=== PATIENT | male | born 1950 | race Caucasian/White ===

== ENCOUNTER 2021-02-03 14:28 | Inpatient (IN) | payer MEDICARE ==
--- NOTE | 2021-02-03 17:28 | XR ---
EXAMINATION TYPE: XR chest 2V DATE OF EXAM: 02/03/2021 COMPARISON: NONE HISTORY: Short of breath. Weakness TECHNIQUE: 2 view FINDINGS: Heart is normal. Lungs are clear of infiltrate. There is no heart failure. There are no hil ar masses. Bony thorax is intact. IMPRESSION: No active cardiopulmonary disease. Normal heart.
[2021-02-03 19:17] LABS: Basophils % (A) 0 %; Eosinophils % (A) 0 %; HCT 46.6 % (39.0-53.0); HGB 16.1 gm/dL (13.0-17.5); Lymphocytes # (A) 0.4 k/uL (1.0-4.8); Lymphocytes % (A) 6 %; MCH 34.1 pg (25.0-35.0); MCHC 34.6 g/dL (31.0-37.0); MCV 98.6 fL (80.0-100.0); Monocytes # (A) 0.7 k/uL (0-1.0); Monocytes % (A) 10 %; Neutrophils # (A) 5.9 k/uL (1.3-7.7); Neutrophils % (A) 81 %; Platelet Count 196 k/uL (150-450); RBC 4.73 m/uL (4.30-5.90); RDW 11.6 % (11.5-15.5); WBC 7.3 k/uL (3.8-10.6)
[2021-02-03 19:32] LABS: INR 0.9 (<1.2); Prothrombin Time 9.7 sec (9.0-12.0)
[2021-02-03 19:40] LABS: ALT 24 U/L (4-49); AST 30 U/L (17-59); African American GFR (CKD) >90 (>60 ml/min/1.73 sqM); Albumin 4.7 g/dL (3.5-5.0); Alkaline Phosphatase 100 U/L (38-126); Anion Gap 12 mmol/L; Blood Urea Nitrogen 7 mg/dL (9-20); Calcium 9.5 mg/dL (8.4-10.2); Carbon Dioxide 24 mmol/L (22-30); Chloride 90 mmol/L (98-107); Glucose 112 mg/dL (74-99); Non-African American GFR(CKD) >90 (>60 ml/min/1.73 sqM); Potassium 4.1 mmol/L (3.5-5.1); Sodium 126 mmol/L (137-145); Total Bilirubin 0.7 mg/dL (0.2-1.3); Total Protein 8.1 g/dL (6.3-8.2)
[2021-02-03] MEDS ORDERED: SODIUM CHLORIDE 0.9% 1,000 ML IV STA (20:10)
[2021-02-03] MEDS ORDERED: DOCUSATE 100 MG CAP PO PRN (20:13)
[2021-02-03] MEDS ORDERED: NALOXONE 0.4 MG/ML 1 ML VIAL IV PRN (20:13)
[2021-02-03] MEDS ORDERED: ONDANSETRON 4 MG/2 ML VIAL IVP PRN (20:13)
[2021-02-03] MEDS ORDERED: traMADol 50 MG TAB PO PRN (20:13)
--- NOTE | 2021-02-03 20:13 | ED ---
General Adult HPI - General Chief complaint: Shortness of Breath Stated complaint: Shortness of Breath Time Seen by Provider: 02/03/21 18:04 Source: patient Mode of arrival: ambulatory Limitations: no limitations - History of Present Illness Initial comments: Patient presents with generalized weakness. He has some shortness of breath. He has no nausea or vomiting. He had no recent sick contacts. He hasn't taken any new medications. He has taken no medication to help with the symptoms. He has no swelling in the arms or legs. He has no palpitations. He does have worsening shortness of breath while lying down or with exertion. He has general ized lethargy. He has malaise. He has no focal deficits however. - Related Data Allergies Allergy/AdvReac Type Severity Reaction Status Date / Time No Known Allergies Allergy Verified 02/03/21 16:24 Review of Systems ROS Statement: Those systems with pertinent positive or pertinent negative responses have been documented in the HPI. ROS Other: All systems not noted in ROS Statement are negative. Past Medical History Past Medical History: No Reported History History of Any Multi-Drug Resistant Organisms: None Reported Past Surgical History: No Surgical Hx Reported Past Psychological History: No Psychological Hx Reported Smoking Status: Never smoker Past Alcohol Use History: None Reported, Daily Past Drug Use History: None Reported, Marijuana General Exam Limitations: no limitations General appearance: alert, in no apparent distress Head exam: Present: atraumatic, normocephalic, normal inspection Eye exam: Present: normal appearance, PERRL, EOMI. Absent: scleral icterus, conjunctival injection, periorbital swelling ENT exam: Present: normal exam, mucous membranes moist Neck exam: Present: normal inspection. Absent: tenderness, meningismus, lymphadenopathy Respiratory exam: Present: normal lung sounds bilaterally. Absent: respiratory distress, wheezes, rales, rhonchi, stridor Cardiovascular Exam: Present: regular rate, normal rhythm, normal heart sounds. Absent: systolic murmur, diastolic murmur, rubs, gallop, clicks GI/Abdominal exam: Present: soft, normal bowel sounds. Absent: distended, tenderness, guarding, rebound, rigid Extremities exam: Present: normal inspection, full ROM, normal capillary refill. Absent: tenderness, pedal edema, joint swelling, calf tenderness Back exam: Present: normal inspection Neurological exam: Present: alert, oriented X3, CN II-XII intact Psychiatric exam: Present: normal affect, normal mood Skin exam: Present: warm, dry, intact, normal color. Absent: rash Course Vital Signs 02/03/21 02/03/21 16:25 18:28 Temperature 98.9 F Pulse Rate 98 96 Respiratory 20 18 Rate Blood Pressure 178/102 189/107 O2 Sat by Pulse 96 96 Oximetry Medical Decision Making - Medical Decision Making Patient presents with malaise and weakness and shortness of breath. He has a very low sodium. I ordered him sodium chloride. He will be admitted to the hospital. - Lab Data Result diagrams: 02/03/21 19:00 02/03/21 19:00 Lab Results 02/03/21 02/03/21 02/03/21 Range/Units 16:30 19:00 19:00 WBC 7.3 (3.8-10.6) k/uL RBC 4.73 (4.30-5.90) m/uL Hgb 16.1 (13.0-17.5) gm/dL Hct 46.6 (39.0-53.0) % MCV 98.6 (80.0-100.0) fL MCH 34.1 (25.0-35.0) pg MCHC 34.6 (31.0-37.0) g/dL RDW 11.6 (11.5-15.5) % Plt Count 196 (150-450) k/uL MPV 8.0 Neutrophils % 81 % Lymphocytes % 6 % Monocytes % 10 % Eosinophils % 0 % Basophils % 0 % Neutrophils # 5.9 (1.3-7.7) k/uL Lymphocytes # 0.4 L (1.0-4.8) k/uL Monocytes # 0.7 (0-1.0) k/uL Eosinophils # 0.0 (0-0.7) k/uL Basophils # 0.0 (0-0.2) k/uL PT 9.7 (9.0-12.0) sec INR 0.9 (<1.2) APTT 25.0 (22.0-30.0) sec D-Dimer 0.21 (<0.60) mg/L FEU Sodium (137-145) mmol/L Potassium (3.5-5.1) mmol/L Chloride (98-107) mmol/L Carbon Dioxide (22-30) mmol/L Anion Gap mmol/L BUN (9-20) mg/dL Creatinine (0.66-1.25) mg/dL Est GFR (CKD-EPI)AfAm (>60 ml/min/1.73 sqM) Est GFR (CKD-EPI)NonAf (>60 ml/min/1.73 sqM) Glucose (74-99) mg/dL Plasma Lactic Acid Mikey (0.7-2.0) mmol/L Calcium (8.4-10.2) mg/dL Magnesium (1.6-2.3) mg/dL Total Bilirubin (0.2-1.3) mg/dL AST (17-59) U/L ALT (4-49) U/L Alkaline Phosphatase (38-126) U/L Troponin I (0.000-0.034) ng/mL NT-Pro-B Natriuret Pep pg/mL Total Protein (6.3-8.2) g/dL Albumin (3.5-5.0) g/dL Coronavirus (PCR) Not Detected (Not Detectd) 02/03/21 02/03/21 02/03/21 Range/Units 19:00 19:00 19:00 WBC (3.8-10.6) k/uL RBC (4.30-5.90) m/uL Hgb (13.0-17.5) gm/dL Hct (39.0-53.0) % MCV (80.0-100.0) fL MCH (25.0-35.0) pg MCHC (31.0-37.0) g/dL RDW (11.5-15.5) % Plt Count (150-450) k/uL MPV Neutrophils % % Lymphocytes % % Monocytes % % Eosinophils % % Basophils % % Neutrophils # (1.3-7.7) k/uL Lymphocytes # (1.0-4.8) k/uL Monocytes # (0-1.0) k/uL Eosinophils # (0-0.7) k/uL Basophils # (0-0.2) k/uL PT (9.0-12.0) sec INR (<1.2) APTT (22.0-30.0) sec D-Dimer (<0.60) mg/L FEU Sodium 126 L (137-145) mmol/L Potassium 4.1 (3.5-5.1) mmol/L Chloride 90 L (98-107) mmol/L Carbon Dioxide 24 (22-30) mmol/L Anion Gap 12 mmol/L BUN 7 L (9-20) mg/dL Creatinine 0.58 L (0.66-1.25) mg/dL Est GFR (CKD-EPI)AfAm >90 (>60 ml/min/1.73 sqM) Est GFR (CKD-EPI)NonAf >90 (>60 ml/min/1.73 sqM) Glucose 112 H (74-99) mg/dL Plasma Lactic Acid Mikey 1.2 (0.7-2.0) mmol/L Calcium 9.5 (8.4-10.2) mg/dL Magnesium 2.0 (1.6-2.3) mg/dL Total Bilirubin 0.7 (0.2-1.3) mg/dL AST 30 (17-59) U/L ALT 24 (4-49) U/L Alkaline Phosphatase 100 (38-126) U/L Troponin I <0.012 (0.000-0.034) ng/mL NT-Pro-B Natriuret Pep pg/mL Total Protein 8.1 (6.3-8.2) g/dL Albumin 4.7 (3.5-5.0) g/dL Coronavirus (PCR) (Not Detectd) 02/03/21 Range/Units 19:00 WBC (3.8-10.6) k/uL RBC (4.30-5.90) m/uL Hgb (13.0-17.5) gm/dL Hct (39.0-53.0) % MCV (80.0-100.0) fL MCH (25.0-35.0) pg MCHC (31.0-37.0) g/dL RDW (11.5-15.5) % Plt Count (150-450) k/uL MPV Neutrophils % % Lymphocytes % % Monocytes % % Eosinophils % % Basophils % % Neutrophils # (1.3-7.7) k/uL Lymphocytes # (1.0-4.8) k/uL Monocytes # (0-1.0) k/uL Eosinophils # (0-0.7) k/uL Basophils # (0-0.2) k/uL PT (9.0-12.0) sec INR (<1.2) APTT (22.0-30.0) sec D-Dimer (<0.60) mg/L FEU Sodium (137-145) mmol/L Potassium (3.5-5.1) mmol/L Chloride (98-107) mmol/L Carbon Dioxide (22-30) mmol/L Anion Gap mmol/L BUN (9-20) mg/dL Creatinine (0.66-1.25) mg/dL Est GFR (CKD-EPI)AfAm (>60 ml/min/1.73 sqM) Est GFR (CKD-EPI)NonAf (>60 ml/min/1.73 sqM) Glucose (74-99) mg/dL Plasma Lactic Acid Mikey (0.7-2.0) mmol/L Calcium (8.4-10.2) mg/dL Magnesium (1.6-2.3) mg/dL Total Bilirubin (0.2-1.3) mg/dL AST (17-59) U/L ALT (4-49) U/L Alkaline Phosphatase (38-126) U/L Troponin I (0.000-0.034) ng/mL NT-Pro-B Natriuret Pep 98 pg/mL Total Protein (6.3-8.2) g/dL Albumin (3.5-5.0) g/dL Coronavirus (PCR) (Not Detectd) Disposition Clinical Impression: Hyponatremia Disposition: ADMITTED IP TO THIS HOSP Condition: Fair Referrals: Jonelle Osei MD [Primary Care Provider] - 1-2 days
--- NOTE | 2021-02-04 07:56 | ECHOF ---
Referral Reason:dyspnea MEASUREMENTS -------- HEIGHT: 180.3 cm WEIGHT: 68.9 kg BP: IVSd: 0.9 cm (0.6 - 1.1) LVIDd: 3.4 cm (3.9 - 5.3) LVPWd: 1.3 cm (0.6 - 1.1) IVSs: 1.6 cm LVIDs: 1.7 cm LVPWs: 1.6 cm Ao Diam: 3.3 cm (2.0 - 3.7) AV Cusp: 1.6 cm (1.5 - 2.6) LA Diam: 2.2 cm (2.7 - 3.8) MV EXCURSION: 14.924 mm (> 18.000) MV EF SLOPE: 68 mm/s (70 - 150) EPSS: 0.3 cm MV E Richard: 0.66 m/s MV DecT: 197 ms MV A Richard: 0.97 m/s MV E/A Ratio: 0.68 RAP: 5.00 mmHg RVSP: 25.57 mmHg FINDINGS -------- This was a technically difficult study with suboptimal views. Study taken from [facility] The left ventricular size is normal. There is mild concentric left ventricular hypertrophy. Overa ll left ventricular systolic function is normal with, an EF between 55 - 60 %. The RV was not well visualized. The left atrial size is normal. The right atrial size is normal. The aortic valve was not well visualized. The mitral valve is normal. There is trace mitral regurgitation. The tricuspid valve appears structurally normal. Trace tricuspid regurgitation present. Right felix tricular systolic pressure is normal at < 35 mmHg. The pulmonic valve was not well visualized. The aortic root size is normal. Normal inferior vena cava with normal inspiratory collapse consistent with estimated right atrial pre ssure of 5 mmHg. There is no pericardial effusion. CONCLUSIONS -------- 1. Study taken from [facility] 2. The left ventricular size is normal. 3. There is mild concentric left ventricular hypertrophy. 4. Overall left ventricular systolic function is normal with, an EF between 55 - 60 %. 5. There is trace mitral regurgitation. 6. Trace tricuspid regurgitation present. 7. There is no pericardial effusion. [employer]: Breonna Luciano [facility]
[2021-02-04] MEDS ORDERED: LOSARTAN 50 MG TAB PO SCH (09:00)
[2021-02-04 11:16] LABS: African American GFR (CKD) >90 (>60 ml/min/1.73 sqM); Anion Gap 5 mmol/L; Blood Urea Nitrogen 7 mg/dL (9-20); Calcium 8.6 mg/dL (8.4-10.2); Carbon Dioxide 27 mmol/L (22-30); Chloride 94 mmol/L (98-107); Glucose 112 mg/dL (74-99); Non-African American GFR(CKD) >90 (>60 ml/min/1.73 sqM); Potassium 3.9 mmol/L (3.5-5.1); Sodium 126 mmol/L (137-145)
[2021-02-04] MEDS: AZITHROMYCIN 500 MG TAB PO SCH (11:23)
--- NOTE | 2021-02-04 11:42 | CT ---
EXAMINATION TYPE: CT angio chest DATE OF EXAM: 02/04/2021 11:18 AM COMPARISON: None HISTORY: RITA CT DLP: 224.5 mGycm Automated exposure control for dose reduction was used. CONTRAST: CTA scan of the thorax is performed with IV Contrast, patient injected with 100 mL of Isovue 370, pul monary embolism protocol. . FINDINGS: LUNGS: There is emphysematous changes. There is peribronchial thickening involving the lung bases cor relate for bronchitis. No consolidative pneumonia or pleural effusion. No pneumothorax. Apical and po sterior pleural-based thickening noted. MEDIASTINUM: There is a soft tissue fullness involving the mediastinum and hilum measuring a short ax is of 1.1 cm compatible with adenopathy. Coronary artery calcification is seen is a trace pericardial fluid. Aorta appears to be of normal caliber with atherosclerotic change. Heart size normal. OTHER: Hypertrophic and degenerative changes of the spine. Hypodensity involving the upper pole the left kidney is too small to characterize but likely related to a cyst and there is mild thickening of the adrenal glands. IMPRESSION: COPD WITH NONSPECIFIC MEDIASTINAL AND HILAR LYMPHADENOPATHY. CORRELATE CLINICALLY. PERIBRONCHIAL WALL THICKENING IS NOTED DIFFUSELY CAN BE ASSOCIATED WITH INFLAMMATORY CONDITIONS INCLU DING BRONCHITIS CORRELATE CLINICALLY. CORONARY ARTERY CALCIFICATION. SMALL PERICARDIAL EFFUSION.
[2021-02-04] MEDS ORDERED: LOSARTAN 50 MG TAB PO STA (15:02)
--- NOTE | 2021-02-04 15:04 | P.HPIM ---
History of Present Illness H&P Date: 02/04/21 HISTORY OF PRESENT ILLNESS This is a 70-year-old male patient of Dr. Osei with PMH of hypertension, generalized osteoarthritis, remote history of tobacco use, COPD. Patient complains of shortness of breath and cough with opaque sputum production. He also complains of occasional wheezing. Symptoms seem to have started her gotten worse after having sexual intercourse with his and he experienced pain while she was on top of him. He has been diagnosed with COPD but does not follow with a pulmonary doctor and is not on any treatment. He complains of increasing shortness of breath with activity but continued to worsen on Wednesday and Wednesday. He denies any Covid exposure. She was afebrile, heart rate 96, initial blood pressure 178/102, pulse ox 96% on room air. CBC was unremarkable. Sodium 126, potassium 4.1, chloride 90, CO2 24, BUN 7 and creatinine 0.58. Blood sugar 112. Troponin negative on 2 draws. Contreras virus not detected on 2 specimens. ProBNP 98. Chest x-ray reveals no acute cardio pulmonary disease. Echocardiogram reveals EF of 55-60%, mild concentric left hypertrophy, trace mitral regurgitation, trace tricuspid regurgitation. CTA of the chest revealed COPD with nonspecific mediastinal and hilar lymphadenopathy. Peribronchial wall thickening is noted diffusely can be associated with inflammatory conditions including bronchitis. Coronary artery calcification small pericardial effusion. Patient is seen today on the Medr floor, consult added for pulmonary medicine, consult with nephrology for hyponatremia. REVIEW OF SYSTEMS Constitutional: No fever, no chills, no night sweats. No weight change. No weakness, fatigue or lethargy. No daytime sleepiness. EENT: No headache. No blurred vision or double vision, no loss of vision. No loss of Hearing, no ringing in the ears, no dizziness. No nasal drainage or congestion. No epistaxis. No sore throat. Lungs: Reports shortness of breath, reports cough, reports sputum production. No wheezing. Cardiovascular: No chest pain, no lower extremity edema. No palpitations. No paroxysmal nocturnal dyspnea. No orthopnea. No lightheadedness or dizziness. No syncopal episodes. Abdominal: No abdominal pain. No nausea, vomiting. No diarrhea. No constipation. No bloody or tarry stools. No loss of appetite. Genitourinary: No dysuria, increased frequency, urgency. No urinary retention. Musculoskeletal: No myalgias. No muscle weakness, no gait dysfunction, no frequent falls. No back pain. No neck pain. Integumentary: No wounds, no lesions. No rash or pruritus. No unusual bruising. No change in hair or nails. Neurologic: No aphasia. No facial droop. No change in mentation. No head injury. No headache. No paralysis. No paresthesia. Psychiatric: No depression. No anxiety. No mood swings. Endocrine: No abnormal blood sugars. No weight change. SOCIAL HISTORY Patient was a smoker for greater than 20 years and quit in the . He drinks 2-3 beer or liquor per day for greater than 30 years. He denies having withdrawal symptoms when he does not have alcohol. He has used marijuana in the past but not at this time, denies illicit drug use. 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 He lives at home with his . FAMILY HISTORY Mother at age 79 from brain cancer. Father at age 80 from heart failure. Patient has a total of 7 siblings and 2 sisters have one from throat cancer and one from brain cancer. Patient has 2 children with no major medical problems. PHYSICAL EXAMINATION Gen: This is a 70-year-old male. He is resting in the bed with no a cute respiratory distress. HEENT: Head is atraumatic, normocephalic. Pupils equal, round. Sclerae is anicteric. NECK: Supple. No JVD. No lymphadenopathy. No thyromegaly. LUNGS: Clear to auscultation. No wheezes or rhonchi. No intercostal retractions. HEART: Regular rate and rhythm. No murmur. ABDOMEN: Soft. Bowel sounds are present. No masses. No tenderness. EXTREMITIES: No pedal edema. No calf tenderness. NEUROLOGICAL: Patient is awake, alert and oriented x3. Cranial nerves 2 through 12 are grossly intact. ASSESSMENT AND PLAN 1. Difficulty in breathing of unclear etiology. Consult with pulmonary medicine, patient started on ceftriaxone and azithromycin for atypical pneumonia. 2. Uncontrolled hypertension. Losartan increased to 100 mg daily. 3. Insomnia. Continue Restoril 50 mg at bedtime. 4. Remote history of tobacco use and dependence. 5. GI prophylaxis. Protonix. 6. DVT prophylaxis. Lovenox. 7. COVID-19 testing negative. Patient has been hospitalized during a pandemic. Patient will be admitted to the hospital for a minimum of 2 night stay. DISCHARGE PLAN Return home. Impression and plan of care have been directed as dictated by the signing physician. Aylin Lee nurse practitioner acting as scribe for signing physician. Past Medical History Past Medical History: Hypertension, Osteoarthritis (OA) History of Any Multi-Drug Resistant Organisms: None Reported Past Surgical History: No Surgical Hx Reported, Tonsillectomy Additional Past Surgical History / Comment(s): cyst taken of lt wrist. orif rt ring finger,cataracts removed, carple tunnel surgery lt hand, Past Psychological History: No Psychological Hx Reported Smoking Status: Former smoker Past Alcohol Use History: None Reported, Daily Past Drug Use History: None Reported, Marijuana Medications and Allergies Home Medications Medication Instructions Recorded Confirmed Type Immune Booster Liquid Drops 3 drops PO DAILY PRN 02/03/21 02/03/21 History Losartan [Cozaar] 50 mg PO DAILY 02/03/21 02/03/21 History Unknown Otc Sinus & Cough 1 dose PO DAILY PRN 02/03/21 02/03/21 History Medication diphenhydrAMINE [Benadryl] 25 mg PO DAILY PRN 02/03/21 02/03/21 History Viagra (Unknown Dose) 1 tab PO DAILY PRN 02/04/21 02/04/21 History Allergies Allergy/AdvReac Type Severity Reaction Status Date / Time No Known Allergies Allergy Verified 02/03/21 21:24 Physical Exam Vitals: Vital Signs Temp Pulse Pulse Resp BP BP Pulse Ox 02/04/21 04:30 99.1 F 93 20 153/81 94 L 02/03/21 23:30 98.3 F 101 H 22 169/94 93 L 02/03/21 22:25 97.6 F 97 18 174/108 94 L 02/03/21 21:00 95 18 167/102 94 L 02/03/21 18:28 96 18 189/107 96 02/03/21 16:25 98.9 F 98 20 178/102 96 Intake and Output 02/03/21 02/04/21 02/04/21 22:59 06:59 14:59 Intake Total 100 Balance 100 Intake: Oral 100 Other: # Voids 1 Weight 68.946 kg Results CBC & Chem 7: 02/03/21 19:00 02/04/21 09:39 Labs: Abnormal Lab Results - Last 24 Hours (Table) 02/03/21 02/03/21 Range/Units 19:00 19:00 Lymphocytes # 0.4 L (1.0-4.8) k/uL Sodium 126 L (137-145) mmol/L Chloride 90 L (98-107) mmol/L BUN 7 L (9-20) mg/dL Creatinine 0.58 L (0.66-1.25) mg/dL Glucose 112 H (74-99) mg/dL Thrombosis Risk Factor Assmnt - Choose All That Apply Any of the Below Risk Factors Present?: No Each Risk Factor Represents 2 Points: Age 61-74 years Thrombosis Risk Factor Assessment Total Risk Factor Score: 2 Thrombosis Risk Factor Assessment Level: Low Risk
--- NOTE | 2021-02-04 20:36 | CONS ---
CONSULTATION REASON FOR CONSULT: Hyponatremia. HISTORY OF PRESENT ILLNESS: The patient is a 70-year-old male who was admitted to the hospital yesterday with complaints of shortness of breath. He denied any nausea or vomiting. He was also complaining of increased weakness. Patient denies any previous history of hyponatremia. His sodium was noted to be 126 and it is again 126 today. We do not have any prior labs available for comparison. Creatinine is 0.5. Blood pressure was not low. It is staying 160-150 mmHg systolic. At home, patient was not maintained on any diuretics. PAST MEDICAL HISTORY: Hypertension. PAST SURGICAL HISTORY: None. SOCIAL HISTORY: Negative for smoking, drug abuse or alcohol abuse. MEDICATIONS: Medications prior to admission included Cozaar, Viagra p.r.n. REVIEW OF SYSTEMS: As per HPI. Other systems negative. EXAMINATION: Blood pressure is 164/86, heart rate 94 per minute. Patient is afebrile. Examination of the heart S1, S2. Examination of the lungs, bilateral breath sounds are heard. Abdomen is soft, nontender. Examination of lower extremities shows no evidence of edema. 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 LAB: Show sodium 126, potassium 3.9, BUN 7, serum creatinine 0.58, hemoglobin 16.1. ASSESSMENT: 1. Hyponatremia. Patient appears euvolemic. He is status post IV fluids at 130 mL an hour. This is now discontinued. Serum sodium has stayed the same and has not improved and blood pressure is not low. Therefore this is mostly euvolemic hyponatremia. Need to rule out SIADH versus poor solute intake. Check urine osmolality and repeat sodium later on this evening. No evidence of CHF noted on chest x-ray and clinically. 2. Increased weakness, possibly related to hyponatremia, although serum sodium is not critically low. 3. Hypertension. Continue with the Cozaar. PLAN: Check urine osmolality. Check TSH. Repeat sodium this afternoon and continue to hold off on the saline for now. Thank you for this consultation. We will continue to follow the patient with you during his hospitalization. MMODL / IJN: [id number] /
[2021-02-04] MEDS: oxyCODONE-APAP 5-325MG 1 EACH TAB PO PRN (20:49)
[2021-02-05] MEDS: TEMAZEPAM 15 MG CAP PO PRN ×2 (01:44→20:04)
[2021-02-05] MEDS: oxyCODONE-APAP 5-325MG 1 EACH TAB PO PRN ×2 (06:58→20:04)
[2021-02-05] MEDS: ENOXAPARIN 40 MG/0.4 ML SYRINGE SQ SCH (08:39)
[2021-02-05] MEDS: AZITHROMYCIN 500 MG TAB PO SCH (08:40)
[2021-02-05] MEDS: PANTOPRAZOLE 40 MG TABLET PO SCH (08:40)
[2021-02-05] MEDS: LOSARTAN 50 MG TAB PO SCH (08:40)
[2021-02-05] MEDS: methylPREDNISolone SOD SUCCI 40 MG/ML 1 ML VIAL IV SCH ×3 (09:12→20:03)
[2021-02-05] MEDS: IPRATROPIUM-ALBUTEROL 3 ML NEB INHALATION PRN ×2 (10:27→20:22)
--- NOTE | 2021-02-05 11:32 | P.CNPUL ---
History of Present Illness Consult date: 02/05/21 Requesting physician: Sebastian Choudhury Reason for consult: dyspnea Chief complaint: Shortness of breath, cough, congestion History of present illness: This is a 70-year-old male patient who follows with Dr. Osei as his primary care provider. He has a history of hypertension. Very remote history of smoking quit in the . 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 He presented here to the emergency room on 02/03/2021 with a three-day history of shortness of breath, wheezing, weakness. It started as a postnasal drip and settled into his chest. He has a productive cough of white sputum. He is vaccinated against COVID-19 including a booster dose. X-ray revealed no acute pulmonary process. CT angiogram revealed evidence of COPD with nonspecific mediastinal and hilar adenopathy. There is peribronchial wall thickening associated with bronchitis. Small pericardial effusion. Echocardiogram revealed preserved left ventricular systolic function with ejection fraction 55-60%. No significant valvular heart disease. White count 7.3. He was 16.1. Sodium 126. Potassium 3.9. Creatinine 0.58. Troponins negative 2. Contreras virus not detected. He's been initiated on ceftriaxone and azithromycin. Review of Systems REVIEW OF SYSTEMS: CONSTITUTIONAL: Generalized weakness. Fatigue. Denies any recent significant weight loss or weight gain. EYES: Denies change in vision. EARS, NOSE, MOUTH, THROAT: Denies headaches, denies sore throat. CARDIOVASCULAR: Denies chest pain, palpitations or syncopal episodes. RESPIRATORY: Positive for shortness of breath, cough, congestion no hemoptysis. GASTROINTESTINAL: Denies change in appetite, denies abdominal pain GENITOURINARY: Denies hematuria, denies infections. MUSKULOSKELETAL: Denies pain, denies swelling. INTEGUMENTARY: Denies rash, denies eczema. NEUROLOGICAL: Denies recent memory loss, no recent seizure activity. PSYCHIATRIC: Denies anxiety, denies depression. HEMATOLOGIC/LYMPHATIC: Denies anemia, denies enlarged lymph nodes. Past Medical History Past Medical History: Hypertension, Osteoarthritis (OA) History of Any Multi-Drug Resistant Organisms: None Reported Past Surgical History: No Surgical Hx Reported, Tonsillectomy Additional Past Surgical History / Comment(s): cyst taken of lt wrist. orif rt ring finger,cataracts removed, carple tunnel surgery lt hand, Past Psychological History: No Psychological Hx Reported Smoking Status: Former smoker Past Alcohol Use History: None Reported, Daily Past Drug Use History: None Reported, Marijuana Medications and Allergies Home Medications Medication Instructions Recorded Confirmed Type Immune Booster Liquid Drops 3 drops PO DAILY PRN 02/03/21 02/03/21 History Losartan [Cozaar] 50 mg PO DAILY 02/03/21 02/03/21 History Unknown Otc Sinus & Cough 1 dose PO DAILY PRN 02/03/21 02/03/21 History Medication diphenhydrAMINE [Benadryl] 25 mg PO DAILY PRN 02/03/21 02/03/21 History Viagra (Unknown Dose) 1 tab PO DAILY PRN 02/04/21 02/04/21 History Allergies Allergy/AdvReac Type Severity Reaction Status Date / Time No Known Allergies Allergy Verified 02/03/21 21:24 Physical Exam Vitals: Vital Signs Temp Pulse Pulse Resp BP BP Pulse Ox 02/05/21 10:37 82 18 02/05/21 10:30 81 18 92 L 02/05/21 09:45 02/05/21 05:00 99 F 100 20 163/98 95 02/04/21 20:00 99.1 F 94 20 161/89 95 02/04/21 19:01 112 H 18 02/04/21 14:53 98.4 F 112 H 18 166/88 96 02/04/21 12:49 98.6 F 94 17 164/86 97 Pulse Ox Pulse Ox Pulse Ox 02/05/21 10:37 02/05/21 10:30 02/05/21 09:45 94 L 92 L 91 L 02/05/21 05:00 02/04/21 20:00 02/04/21 19:01 02/04/21 14:53 02/04/21 12:49 Intake and Output 02/04/21 02/05/21 02/05/21 22:59 06:59 14:59 Intake Total 1560 100 Output Total 600 Balance 960 100 Intake: Intake, IV Titration 520 Amount Sodium Chloride 0.9% 1, 520 000 ml @ 130 mls/hr IV . Q7H42M STA Rx#:[id number] Oral 1040 100 Output: Urine 600 Other: Voiding Method Urinal Urinal # Voids 2 1 GENERAL EXAM: Alert, [id number] gentleman, on room air, comfortable in no apparent distress. HEAD: Normocephalic. EYES: Normal reaction of pupils, equal size. NOSE: Clear with pink turbinates. THROAT: No erythema or exudates. NECK: No masses, no JVD. CHEST: No chest wall deformity. LUNGS: Equal air entry with no crackles, wheeze, rhonchi or dullness. CVS: S1 and S2 normal with no audible murmur, regular rhythm. ABDOMEN: No hepatosplenomegaly, normal bowel sounds, no guarding or rigidity. SPINE: No scoliosis or deformity SKIN: No rashes CENTRAL NERVOUS SYSTEM: No focal deficits, tone is normal in all 4 extremities. EXTREMITIES: There is no peripheral edema. No clubbing, no cyanosis. Peripheral pulses are intact. Results - Laboratory Findings CBC and BMP: 02/03/21 19:00 02/04/21 16:00 PT/INR, D-dimer PT 9.7 sec (9.0-12.0) 02/03/21 19:00 INR 0.9 (<1.2) 02/03/21 19:00 D-Dimer 0.21 mg/L FEU (<0.60) 02/03/21 19:00 Abnormal lab findings: Abnormal Labs 02/03/21 02/03/21 02/04/21 19:00 19:00 09:39 Lymphocytes # 0.4 L Sodium 126 L 126 L Chloride 90 L 94 L BUN 7 L 7 L Creatinine 0.58 L 0.58 L Glucose 112 H 112 H 02/04/21 16:00 Lymphocytes # Sodium 126 L Chloride BUN Creatinine Glucose - Diagnostic Findings Chest x-ray: image reviewed Assessment and Plan Assessment: 1 Acute bronchitis with no clear evidence of pneumonia and possible underlying COPD exacerbation 2 Hyponatremia, unclear etiology, recent poor appetite, possible SIADH, urine osmolality 467 3 Hypertension 4 Former smoker Plan: The patient was seen and evaluated by Dr. Johnson Chest x-ray, CAT scans and labs reviewed Probable bronchitis, possible underlying COPD Add IV Solu-Medrol Add DuoNeb inhalations Continue antibiotics for now Probable home in the next 24 hours Could follow up in the office for full pulmonary function testing We will continue to follow and make further recommendations based on his clinical status I, the cosigning physician, performed a history & physical examination of the patient. Lungs sounds are clear, diminished. Maintaining good O2 saturations in the 90s on room air. I discussed the assessment and plan of care with my nurse practitioner, Jelena Recinos. I attest to the above consultation as dictated by her. Time with Patient: Greater than 30
--- NOTE | 2021-02-05 15:39 | PN ---
PROGRESS NOTE Patient is seen for followup for hyponatremia. His serum sodium has stayed at 126 since yesterday. Urine osmolality is elevated. Patient appears to be euvolemic. He did get IV fluids initially. The urine osmolality was high at 467. Patient is maintaining fluid restriction. His blood pressure is on the higher side; therefore he has not received sodium chloride tabs. On examination today, blood pressure was 163/98, heart rate 100 per minute. He is afebrile. EXAMINATION OF THE HEART: S1 and S2. EXAMINATION OF LUNGS: Bilateral breath sounds are heard. Abdomen is soft, non-tender. Examination of lower extremities shows no evidence of edema. CAFE ATTENDANT EXAM: Grossly intact. Labs show repeat sodium 126. ASSESSMENT: 1. Hyponatremia. Patient is euvolemic, most likely SIADH with elevated urine osmolality of 467. No clear-cut pneumonia noted on chest x-ray. Possible bronchitis, maintained on antibiotics and currently improving. No evidence of significant any significant mass on the chest x-ray. I will give him a low dose of tolvaptan today and continue off of IV fluids for now and maintain some degree of fluid restriction with increased oral protein intake. 2. Hypertension. 3. Acute bronchitis versus pneumonia, maintained on antibiotics and steroids. PLAN: Continue antihypertensive regimen. Tolvaptan 7.5 mg p.o. today. Repeat sodium this evening. MMODL / IJN: [id number] /
[2021-02-05] MEDS: TOLVAPTAN 15 MG 1/2 TABLET PO ONE ×2 (15:51→15:52)
--- NOTE | 2021-02-05 16:21 | P.PN ---
Subjective Progress Note Date: 02/05/21 HISTORY OF PRESENT ILLNESS This is a 70-year-old male patient of Dr. Osei with PMH of hypertension, gene ralized osteoarthritis, remote history of tobacco use, COPD. Patient complains of shortness of breath and cough with opaque sputum production. He also complains of occasional wheezing. Symptoms seem to have started her gotten worse after having sexual intercourse with his and he experienced pain while she was on top of him. He has been diagnosed with COPD but does not follow with a pulmonary doctor and is not on any treatment. He complains of increasing shortness of breath with activity but continued to worsen on Wednesday and Wednesday. He denies any Covid exposure. She was afebrile, heart rate 96, initial blood pressure 178/102, pulse ox 96% on room air. CBC was unremarkable. Sodium 126, potassium 4.1, chloride 90, CO2 24, BUN 7 and creatinine 0.58. Blood sugar 112. Troponin negative on 2 draws. Contreras virus not detected on 2 specimens. ProBNP 98. Chest x-ray reveals no acute cardio pulmonary disease. Echocardiogram reveals EF of 55-60%, mild concentric left hypertrophy, trace mitral regurgitation, trace tricuspid regurgitation. CTA of the chest revealed COPD with nonspecific mediastinal and hilar lymphadenopathy. Peribronchial wall thickening is noted diffusely can be associated with inflammatory conditions including bronchitis. Coronary artery calcification small pericardial effusion. Patient is seen today on the MedSurg floor, consult added for pulmonary medi cine, consult with nephrology for hyponatremia. 02/05: Patient is seen today on the MedSurg floor. Patient states his breathing is better today from yesterday. His sodium is maintaining at the same 126. He is followed by nephrology for hyponatremia most likely SIADH and is status post 1 dose of Samsca with plan to repeat today, off IV fluids. Patient is also been seen by pulmonary medicine and added IV Solu-Medrol and DuoNeb treatments for possible COPD exacerbation. Plan is to follow-up in the office for pulmonary function testing. REVIEW OF SYSTEMS Constitutional: No fever, no chills, no night sweats. No weight change. No weakness, fatigue or lethargy. No daytime sleepiness. EENT: No headache. No blurred vision or double vision, no loss of vision. No loss of Hearing, no ringing in the ears, no dizziness. No nasal drainage or congestion. No epistaxis. No sore throat. Lungs: Reports shortness of breath improved, reports cough, reports sputum production. No wheezing. Cardiovascular: No chest pain, no lower extremity edema. No palpitations. No paroxysmal nocturnal dyspnea. No orthopnea. No lightheadedness or dizziness. No syncopal episodes. Abdominal: No abdominal pain. No nausea, vomiting. No diarrhea. No constipation. No bloody or tarry stools. No loss of appetite. Genitourinary: No dysuria, increased frequency, urgency. No urinary retention. Musculoskeletal: No myalgias. No muscle weakness, no gait dysfunction, no frequent falls. No back pain. No neck pain. Integumentary: No wounds, no lesions. No rash or pruritus. No unusual bruising. No change in hair or nails. Neurologic: No aphasia. No facial droop. No change in mentation. No head injury. No headache. No paralysis. No paresthesia. Psychiatric: No depression. No anxiety. No mood swings. Endocrine: No abnormal blood sugars. No weight change. PHYSICAL EXAMINATION Gen: This is a 70-year-old male. He is resting in the bed with no acute respiratory distress. Patient's is at bedside. HEENT: Head is atraumatic, normocephalic. Pupils equal, round. Sclerae is anicteric. NECK: Supple. No JVD. No lymphadenopathy. No thyromegaly. LUNGS: Clear to auscultation. No wheezes or rhonchi. No intercostal retractions. HEART: Regular rate and rhythm. No murmur. ABDOMEN: Soft. Bowel sounds are present. No masses. No tenderness. EXTREMITIES: No pedal edema. No calf tenderness. NEUROLOGICAL: Patient is awake, alert and oriented x3. Cranial nerves 2 through 12 are grossly intact. ASSESSMENT AND PLAN 1. Difficulty in breathing of unclear etiology, acute bronchitis, possible pneumonia, underlying COPD exacerbation. Consult with pulmonary medicine, patient started on ceftriaxone and azithromycin for atypical pneumonia. 2. Uncontrolled hypertension. Losartan increased to 100 mg daily. 3. Hyponatremia secondary to SIADH. Consult with nephrology appreciated. Patient is status post 1 dose of Samsca with repeat dose ordered for today. 4. Insomnia. Continue Restoril 50 mg at bedtime. 5. Remote history of tobacco use and dependence. 6. GI prophylaxis. Protonix. 7. DVT prophylaxis. Lovenox. 8. COVID-19 testing negative. Patient has been hospitalized during a pandemic. DISCHARGE PLAN Return home probably on . Impression and plan of care have been directed as dictated by the signing physician. Aylin Lee nurse practitioner acting as scribe for signing physician. Objective - Vital Signs Vital signs: Vital Signs Temp 99 F 02/05/21 05:00 Pulse 100 02/05/21 05:00 Resp 20 02/05/21 05:00 BP 163/98 02/05/21 05:00 Pulse Ox 95 02/05/21 05:00 Intake & Output 02/04/21 02/05/21 02/05/21 18:59 06:59 18:59 Intake Total 1560 100 Output Total 300 300 Balance 1260 -200 Intake: Intake, IV Titration 520 Amount Sodium Chloride 0.9% 1, 520 000 ml @ 130 mls/hr IV . Q7H42M STA Rx#:[id number] Oral 1040 100 Output: Urine 300 300 Other: Voiding Method Urinal Urinal Urinal # Voids 2 1 - Labs CBC & Chem 7: 02/03/21 19:00 02/05/21 10:33 Labs: Abnormal Lab Results - Last 24 Hours (Table) 02/04/21 02/04/21 Range/Units 09:39 16:00 Sodium 126 L 126 L (137-145) mmol/L Chloride 94 L (98-107) mmol/L BUN 7 L (9-20) mg/dL Creatinine 0.58 L (0.66-1.25) mg/dL Glucose 112 H (74-99) mg/dL
[2021-02-06] MEDS: ENOXAPARIN 40 MG/0.4 ML SYRINGE SQ SCH (08:48)
[2021-02-06] MEDS: LOSARTAN 50 MG TAB PO SCH (08:49)
[2021-02-06] MEDS: AZITHROMYCIN 500 MG TAB PO SCH (08:50)
[2021-02-06] MEDS: PANTOPRAZOLE 40 MG TABLET PO SCH (08:50)
[2021-02-06] MEDS: methylPREDNISolone SOD SUCCI 40 MG/ML 1 ML VIAL IV SCH (09:17)
[2021-02-06] MEDS: IPRATROPIUM-ALBUTEROL 3 ML NEB INHALATION PRN (09:23)
[2021-02-06 10:35] LABS: African American GFR (CKD) >90 (>60 ml/min/1.73 sqM); Anion Gap 10 mmol/L; Blood Urea Nitrogen 13 mg/dL (9-20); Calcium 9.9 mg/dL (8.4-10.2); Carbon Dioxide 28 mmol/L (22-30); Chloride 96 mmol/L (98-107); Glucose 107 mg/dL (74-99); Non-African American GFR(CKD) >90 (>60 ml/min/1.73 sqM); Potassium 4.2 mmol/L (3.5-5.1); Sodium 134 mmol/L (137-145)
[2021-02-06 12:12] VITALS: BP 159/101; PULSE 108; RESP 20; TEMP 98.1
--- NOTE | 2021-02-06 12:51 | P.DS ---
Providers Date of admission: 02/03/21 20:13 Expected date of discharge: 02/06/21 Attending physician: Sebastian Choudhury Consults: 02/03/21 20:13 Consult Physician Routine Consulting Provider: Madyson Ronquillo Consult Reason/Comments: hyponatremia Do you want consulting provider notified?: Yes 02/04/21 09:08 Consult Physician Routine Consulting Provider: Asia Johnson Reason/Comments: RITA Do you want consulting provider notified?: Yes Primary care physician: Jonelle Osei MD Hospital Course: HISTORY OF PRESENT ILLNESS This is a 70-year-old male patient of Dr. Osei with PMH of hypertension, generalized osteoarthritis, remote history of tobacco use, COPD. Patient complains of shortness of breath and cough with opaque sputum production. He also complains of occasional wheezing. Symptoms seem to have started her gotten worse after having sexual intercourse with his and he experienced pain while she was on top of him. He has been diagnosed with COPD but does not follow with a pulmonary doctor and is not on any treatment. He complains of increasing shortness of breath with activity but continued to worsen on Wednesday and Wednesday. He denies any Covid exposure. She was afebrile, heart rate 96, initial blood pressure 178/102, pulse ox 96% on room air. CBC was unremarkable. Sodium 126, potassium 4.1, chloride 90, CO2 24, BUN 7 and creatinine 0.58. Blood sugar 112. Troponin negative on 2 draws. Contreras virus not detected on 2 specimens. ProBNP 98. Chest x-ray reveals no acute cardio pulmonary disease. Echocardiogram reveals EF of 55-60%, mild concentric left hypertrophy, trace mitral regurgitation, trace tricuspid regurgitation. CTA of the chest revealed COPD with nonspecific mediastinal and hilar lymphadenopathy. Peribronchial wall thickening is noted diffusely can be associated with inflammatory conditions including bronchitis. Coronary artery calcification small pericardial effusion. Patient is seen today on the MedSurg floor, consult added for pulmonary medicine, consult with nephrology for hyponatremia. 02/05: Patient is seen today on the MedSurg floor. Patient states his breathing is better today from yesterday. His sodium is maintaining at the same 126. He is followed by nephrology for hyponatremia most likely SIADH and is status post 1 dose of Samsca with plan to repeat today, off IV fluids. Patient is also been seen by pulmonary medicine and added IV Solu-Medrol and DuoNeb treatments for possible COPD exacerbation. Plan is to follow-up in the office for pulmonary function testing. 02/06: Repeat sodium today is at 134. Patient is status post 2 doses of Samsca and is followed by pulmonary followed by nephrology. Patient is also been followed by pulmonary medicine. Patient states that his follows with Dr. QUIANA Quinonez and he would like to follow with that physician after discharge. Patient ambulated without oxygen and pulse ox dropped to 96% and home oxygen therapy will be arranged by the home health care case manager. Patient has been afebrile, heart rate 103, blood pressure 133/88. Patient will be discharged home today in stable condition. DISCHARGE DIAGNOSES 1. Difficulty in breathing of unclear etiology, acute bronchitis, possible pneumonia, underlying COPD exacerbation. 2. Uncontrolled hypertension. 3. Hyponatremia secondary to SIADH. 4. Insomnia. 5. Remote history of tobacco use and dependence. 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 Patient requires oxygen to manage COPD. 7. COVID-19 testing negative. Patient has been hospitalized during a pandemic. DISCHARGE PLAN Home. Greater than 35 minutes was utilized and coordinating patient's discharge. Impression and plan of care have been directed as dictated by the signing ph ysician. Aylin Lee nurse practitioner acting as scribe for signing physician. Patient Condition at Discharge: Good Plan - Discharge Summary New Discharge Prescriptions: New Docusate [Colace] 100 mg PO BID PRN cap PRN Reason: Constipation Albuterol Inhaler [Ventolin Hfa Inhaler] 2 puff INHALATION RT-QID #8 gm Pantoprazole [Protonix] 40 mg PO AC-BRKFST #30 tab Azithromycin [Zithromax] 500 mg PO DAILY #5 tab Losartan Potassium [Cozaar] 100 mg PO DAILY #60 tab predniSONE 0 mg PO DIRECTED #30 tab Continue diphenhydrAMINE [Benadryl] 25 mg PO DAILY PRN PRN Reason: allergies Immune Booster Liquid Drops 3 drops PO DAILY PRN PRN Reason: immune support Viagra (Unknown Dose) 1 tab PO DAILY PRN PRN Reason: MALE ED Unknown Otc Sinus & Cough Medication 1 dose PO DAILY PRN PRN Reason: cough & cold symptoms Discontinued Losartan [Cozaar] 50 mg PO DAILY Discharge Medication List Immune Booster Liquid Drops 3 drops PO DAILY PRN 02/03/21 [History] Unknown Otc Sinus & Cough Medication 1 dose PO DAILY PRN 02/03/21 [History] diphenhydrAMINE [Benadryl] 25 mg PO DAILY PRN 02/03/21 [History] Viagra (Unknown Dose) 1 tab PO DAILY PRN 02/04/21 [History] Albuterol Inhaler [Ventolin Hfa Inhaler] 2 puff INHALATION RT-QID #8 gm 02/06/21 [Rx] Azithromycin [Zithromax] 500 mg PO DAILY #5 tab 02/06/21 [Rx] Docusate [Colace] 100 mg PO BID PRN cap 02/06/21 [Rx] Losartan Potassium [Cozaar] 100 mg PO DAILY #60 tab 02/06/21 [Rx] Pantoprazole [Protonix] 40 mg PO AC-BRKFST #30 tab 02/06/21 [Rx] predniSONE 0 mg PO DIRECTED #30 tab 02/06/21 [Rx] Follow up Appointment(s)/Referral(s): Jonelle Osei MD [Primary Care Provider] - 02/11/21 10:15 am (Appointment is with ASHLEY Smith) Alexandre Quinonez MD [STAFF PHYSICIAN] - 02/12/21 10:30 am Patient Instructions/Handouts: Hyponatremia (DC), Using Oxygen at Home (DC), Acute Bronchitis (GEN) Discharge Disposition: HOME SELF-CARE
--- NOTE | 2021-02-06 17:51 | PN ---
PROGRESS NOTE Patient is seen for followup for hyponatremia. His sodium has improved to 134 today. He is comfortable. He did get a dose of tolvaptan yesterday. No other complaints. On examination, blood pressure this morning was 133/88, heart rate 98 per minute. He is afebrile. EXAMINATION OF THE HEART: S1 and S2. EXAMINATION OF LUNGS: Bilateral breath sounds are heard. Abdomen is soft, non-tender. Examination of lower extremities shows no evidence of edema. IN ROOM DINING SERVER EXAM: Grossly intact. Labs show sodium 134, potassium 4.2, serum creatinine 0.68. ASSESSMENT: 1. Hyponatremia; appears to be secondary to SIADH, improved with one dose of tolvaptan. Patient will be maintained on some degree of fluid restriction. He is encouraged to increase his oral intake of protein and we will repeat labs as outpatient. He could be discharged from nephrology standpoint. 2. Acute bronchitis versus pneumonia, maintained on antibiotics and steroid and currently improved. 3. Hypertension. Blood pressure was elevated. Previous blood pressure has been on the higher side. Patient was maintained on losartan at home, which he has continued here. If his blood pressure remains elevated as outpatient he will need another agent, most likely amlodipine. PLAN: Okay to discharge patient. Repeat labs in about one week. Maintain some degree of fluid restriction and increase protein intake. MMODL / IJN: [id number] /
== END 2021-02-06 16:11 | disposition home or self-care (01) | DRG 190 ==
LOC: EC 14:28 → 5NMEDONC 20:13
PROVIDERS: ADMIT Internal Medicine Geriatric Medicine; ATTEND Internal Medicine Geriatric Medicine
DX: J44.0 Chronic obstructive pulmonary disease with (acute) lower respiratory infection (principal); J96.91 Respiratory failure, unspecified with hypoxia; E22.2 Syndrome of inappropriate secretion of antidiuretic hormone; I31.3 Pericardial effusion (noninflammatory); J20.9 Acute bronchitis, unspecified; Z20.822 Contact with and (suspected) exposure to COVID-19; G47.00 Insomnia, unspecified; I10 Essential (primary) hypertension; I25.10 Atherosclerotic heart disease of native coronary artery without angina pectoris; M15.9 Polyosteoarthritis, unspecified; Z79.52 Long term (current) use of systemic steroids; Z79.899 Other long term (current) drug therapy; Z87.891 Personal history of nicotine dependence; Z80.8 Family history of malignant neoplasm of other organs or systems; Z82.49 Family history of ischemic heart disease and other diseases of the circulatory system
CPT/HCPCS: 36415; 71046; 71275; 80048; 80053; 83605; 83735; 83880; 83935; 84295; 84443; 84484; 85025; 85379; 85610; 85730; 87635; 93306; 94640; 94760; 99285

== ENCOUNTER → 2024-08-10 | Outpatient (CLI) | payer MEDICARE ==
--- NOTE | 2024-08-11 09:01 | XR ---
EXAMINATION TYPE: XR cervical spine 5 views comp, XR shoulder complete 3 views RT DATE OF EXAM: 08/10/2024 4:29 PM COMPARISON: None CLINICAL INDICATION: Male, 73 years old with history of M54.2 cervicalgia M25.511 pain rt shoulder; P HH, pain FINDINGS: Cervical spine: Hypertrophic facet and uncovertebral joint arthropathy is present. On the left, there is resultant mo derate to severe neuroforaminal stenosis C3-C4, moderate at C2-C3 and C5-C6. Mild additional levels. On the right, changes result in moderate bony neural foraminal narrowing C4-C5 and mild at C5-C6 and C6/C7. No predental space widening or prevertebral soft tissue swelling. Moderate to severe discussion plate degenerative change C5-T1 levels. Reversal of the normal cervical lordosis. Degenerative grade 1 anterolisthesis C3-C4 and C7-T1. Grade 1 retrolisthesis C5-C6. Right shoulder: Moderate to severe degenerative joint space narrowing of the AC joint. There is marginal spurring and capsular hypertrophy. Subacromial space is preserved. No acute fracture, subluxation, dislocation. IMPRESSION: Cervical spine: 1. Moderate to advanced spondylotic change especially C5-T1 levels. 2. Degenerative grade 1 spondylolisthesis C3-C4, C5-C6, C7-T1 resulting in reversal of the normal cer vical lordosis. 3. Spondylitic change contributes to variable neural foraminal stenoses as outlined above, moderate t o severe on the left at C3-C4. Right shoulder: 4. Moderate AC joint OA. 5. No acute osseous abnormality seen. [facility], , 08/11/2024 8:58 AM
== END | disposition home or self-care (01) ==
LOC: RADXRMAIN 16:01
PROVIDERS: ATTEND Internal Medicine Geriatric Medicine
DX: M48.02 Spinal stenosis, cervical region (principal); M19.011 Primary osteoarthritis, right shoulder; M47.813 Spondylosis without myelopathy or radiculopathy, cervicothoracic region; M43.13 Spondylolisthesis, cervicothoracic region
CPT/HCPCS: 72050